=== PATIENT | female | born 1955 | race Caucasian/White ===

== ENCOUNTER → 2018-03-27 09:08 | Outpatient (CLI) | payer MEDICARE, SELFPAY ==
[2018-03-27 13:09] LABS: Abs Immature Grans 0.03 k/cumm (0.0-0.09); Absolute Basophil Count 0.12 k/cumm (0.0-0.2); Absolute Eosinophil Count 0.18 k/cumm (0.0-0.7); Absolute Monocyte Count 0.62 k/cumm (0.11-0.7); Basophils % 1.1; Eosinophils % 1.6; HCT 43.2 % (36.0-46.0); HGB 13.5 g/dL (12.0-15.5); Immature Grans % 0.3; Lymphocytes % 23.9; Mean Corp. HGB Concentration 31.3 g/dL (32.0-36.0); Mean Corpuscular Hemoglobin 28.6 pg (27.0-33.0); Mean Corpuscular Volume 91.5 fL (80-95); Mean Platelet Volume 11.1 fL (8.0-11.0); Monocytes % 5.5; Neutrophils % 67.6; Platelet Count 369 x1000/uL (130-400); RBC 4.72 m/cumm (4.00-5.20); RBC Distribution Width 14.4 % (11.7-14.6); White Blood Cell Count 11.31 k/cumm (4.4-10.8)
[2018-03-27 13:18] LABS: ALT 36 U/L (12-78); AST 26 U/L (15-37); Albumin 3.9 g/dL (3.4-5.0); Alkaline Phosphatase 139 U/L (46-116); Anion Gap 11.3 mmol/L (3-11); BUN 22 mg/dL (7-18); Bilirubin, Total 0.2 mg/dL (0.2-1.0); CO2 22.7 mmol/L (21.0-32.0); CREATININE 1.61 mg/dL (0.55-1.02); Calcium 9.2 mg/dL (8.5-10.1); Chloride 105 mmol/L (98-107); Cholesterol 268 mg/dL (50-200); Estimated GFR 32.43 (mL/min/1.73m2); Glucose 111 mg/dL (70-100); HDL Cholesterol 41 mg/dL (40-60); LDL CHOLESTEROL 154 mg/dL (<100); Potassium 4.5 mmol/L (3.5-5.1); Sodium 139 mmol/L (136-145); TSH 3.03 uIU/mL (0.358-3.74); Total Protein 8.1 g/dL (6.4-8.2); Triglyceride 370 mg/dL (30-150)
[2018-03-27 13:19] LABS: Absolute Neutrophil Count 7.65 k/cumm (1.2-6.7)
[2018-03-27 13:42] LABS: FREE T4 1.13 ng/dL (0.76-1.46)
[2018-03-29 12:22] LABS: Lamotrigine 6.8 mcg/mL (2.5 - 15.0)
[2018-04-01 11:37] LABS: Bupropion None Detected; Reporting Limit 50 ng/mL
== END ==
PROVIDERS: PCP Nurse Practitioner Family; Visit Provider Nurse Practitioner Family
DX: E03.9 Hypothyroidism, unspecified (principal); I10 Essential (primary) hypertension; F32.9 Major depressive disorder, single episode, unspecified; Z51.81 Encounter for therapeutic drug level monitoring
CPT/HCPCS: 36415; 80053; 80061; 80175; 80338; 83721; 84439; 84443; 85025

== ENCOUNTER 2018-04-12 10:53 | Outpatient (REF) | payer MEDICARE, SELFPAY ==
[2018-04-12 12:45] LABS: Microalb ug/mg Crea 9.5 ug/mg Cr
== END 2018-04-12 11:13 ==
LOC: LBN 10:53
PROVIDERS: PCP Nurse Practitioner Family; Visit Provider Nurse Practitioner Family
DX: N18.9 Chronic kidney disease, unspecified (principal)
CPT/HCPCS: 82043; 82570

== ENCOUNTER 2018-07-01 10:25 | Outpatient (REF) | payer MEDICARE, SELFPAY ==
--- NOTE | 2018-07-01 09:00 | PAPFT_PTH ---
PATIENT: Jo Ann Kessler LOC: [facility] U#:[id number] AGE/SX: 63/F ROOM: RE07/01/[address]: GREGG Cunningham : 1955 BED: DIS: 07/01/2018 SPEC #: [id number] RECD: 07/01/18 12:52 STATUS: BRYANNA RENoe #: [id number] BARBARA: 07/01/18 09:[address]: Casandra Feng DEPT: [facility] Cytology RECD BY: Jennyfer Aldrich Tissues: 1 - CX/ENDOCX FOR PAP SMEARS Procedures: PAP THIN PREP/UVM Screening HPV DNA PROBE Comments: [id number]
== END 2018-07-01 10:45 ==
LOC: LBN 10:25
PROVIDERS: PCP Nurse Practitioner Family; Visit Provider Nurse Practitioner Family
DX: Z12.4 Encounter for screening for malignant neoplasm of cervix (principal); Z11.51 Encounter for screening for human papillomavirus (HPV)
CPT/HCPCS: 88142; 87624

== ENCOUNTER 2018-07-04 02:16 | Outpatient (CLI) | payer MEDICARE, SELFPAY ==
[2018-07-04 11:49] LABS: ALT 60 U/L (12-78); AST 38 U/L (15-37); Albumin 3.9 g/dL (3.4-5.0); Alkaline Phosphatase 159 U/L (46-116); Anion Gap 10.8 mmol/L (3-11); BUN 26 mg/dL (7-18); Bilirubin, Total 0.2 mg/dL (0.2-1.0); CO2 26.2 mmol/L (21.0-32.0); CREATININE 1.44 mg/dL (0.55-1.02); Calcium 9.1 mg/dL (8.5-10.1); Chloride 104 mmol/L (98-107); Cholesterol 153 mg/dL (50-200); Estimated GFR 36.76 (mL/min/1.73m2); Glucose 118 mg/dL (70-100); HDL Cholesterol 44 mg/dL (40-60); LDL CHOLESTEROL 59 mg/dL (<100); Potassium 4.6 mmol/L (3.5-5.1); Sodium 141 mmol/L (136-145); Total Protein 7.7 g/dL (6.4-8.2); Triglyceride 273 mg/dL (30-150)
[2018-07-04 12:06] LABS: Hemoglobin A1C 6.1 % (4.5-6.2)
== END 2018-07-04 02:36 ==
PROVIDERS: PCP Nurse Practitioner Family; Visit Provider Nurse Practitioner Family
DX: E55.9 Vitamin D deficiency, unspecified (principal); E78.5 Hyperlipidemia, unspecified; R73.03 Prediabetes
CPT/HCPCS: 36415; 80053; 80061; 82306; 83721; 83036

== ENCOUNTER 2018-07-08 00:50 | Outpatient (CLI) | payer MEDICARE, SELFPAY ==
--- NOTE | 2018-07-08 09:48 | DI.MAMMO_ITS ---
SYMPTOM/DIAGNOSIS: SCREENING, Z12.31 MAMMOGRAM: Mammograms were interpreted according to the usual protocol including computer analysis with CAD system, tomosynthesis and C view imaging. Comparison with prior examinations. Breast density category B. There is scattered nodular densities within the breasts which appear stable. There is an area of architectural distortion in the upper inner quadrant of the left breast. this area should be further evaluated with spot compression views. Ultrasound should be obtained at that time. IMPRESSION: Additional views of the left breast, Category 0 breast density category B. MQSA ASSESSMENT OF FINDINGS: Incomplete: Needs additional imaging evaluation. Category 0. Patient will receive a letter notifying them of these results. BI-RADS category B. There are scattered areas of fibroglandular density.
== END 2018-07-08 01:10 ==
PROVIDERS: PCP Nurse Practitioner Family; Visit Provider Nurse Practitioner Family
DX: Z12.31 Encounter for screening mammogram for malignant neoplasm of breast (principal); R92.8 Other abnormal and inconclusive findings on diagnostic imaging of breast
CPT/HCPCS: 77063; 77067

== ENCOUNTER 2018-07-16 01:22 | Outpatient (CLI) | payer MEDICARE, SELFPAY ==
--- NOTE | 2018-07-16 10:07 | DI.COMBO_ITS ---
SYMPTOM/DIAGNOSIS: F/U MAMMO, LT ARCHITECTURAL DISTORTION LEFT BREAST ADDITIONAL VIEWS AND LEFT BREAST ULTRASOUND: Additional images are interpreted according to the usual protocol including tomosynthesis and 2D imaging. Spot compression views with tomography were performed of the upper and inner aspects of the left breast for an area of architectural distortion. This persists on the additional views with a stellate appearance. No ultrasound correlate was identified. No suspicious calcifications are seen. IMPRESSION: Category 4. Suspicious mammogram. Biopsy of a stellate area of architectural distortion in the upper inner aspect of the left breast should be considered. The findings were called to nurse Radha for Dr. Feng at [facility]. [facility] ASSESSMENT OF FINDINGS: Suspicious. Biopsy should be considered. Category 4. Patient will receive a letter notifying them of these results. BI-RADS category B. There are scattered areas of fibroglandular density.
== END 2018-07-16 01:42 ==
PROVIDERS: PCP Nurse Practitioner Family; Visit Provider Nurse Practitioner Family
DX: Z12.31 Encounter for screening mammogram for malignant neoplasm of breast (principal); R92.8 Other abnormal and inconclusive findings on diagnostic imaging of breast; N64.59 Other signs and symptoms in breast
CPT/HCPCS: 76642; 77063; 77067

== ENCOUNTER 2018-07-16 02:08 | Outpatient (CLI) | payer MEDICARE, SELFPAY ==
[2018-07-16 11:37] LABS: COMMENT (LAB VIEW ONLY) 152.33 mg/dL; Microalb ug/mg Crea 24.2 ug/mg Cr
[2018-07-16 14:15] LABS: Bilirubin Negative (Negative); Blood Negative (Negative); Clarity Clear; Glucose Negative (Negative); Ketones Negative (Negative); Leukocyte Esterase Trace (Negative); Nitrite Negative (Negative); Urobilinogen 0.2 EU/dL (Up TO 0.2); pH 5.5 (5-8)
[2018-07-16 14:27] LABS: Bacteria Moderate HPF (Negative); C & S Indicated? No/Sq. Contamination; Casts Negative LPF (Negative); Crystals Negative HPF (Negative); Epithelial Cells Moderate HPF (Negative); Mucus Moderate (Negative); Other Cells Mod Transitional (Negative); RBC Negative (0-2)
== END 2018-07-16 02:28 ==
PROVIDERS: PCP Nurse Practitioner Family; Visit Provider Nurse Practitioner Family
DX: N18.9 Chronic kidney disease, unspecified (principal)
CPT/HCPCS: 76642; 77063; 77067; 81003; 81015; 82043; 82570

== ENCOUNTER 2018-07-19 01:03 | Outpatient (CLI) | payer MEDICARE, SELFPAY ==
--- NOTE | 2018-07-19 15:15 | DI.US_ITS ---
SYMPTOM/DIAGNOSIS: CKD, N18.9 RENAL ULTRASOUND: Routine examination. The right kidney measures 10.1 cm long. The left kidney measures 9.4 cm long. No renal mass, calculus or obstruction is seen. There is symmetric blood flow to the kidneys. The pre-void urinary bladder volume was 160 cc The bladder wall appeared smooth. Both ureteral jets were visualized. No intraluminal masses present. The bladder completely emptied upon voiding. IMPRESSION: Normal renal ultrasound.
== END 2018-07-19 01:23 ==
PROVIDERS: PCP Nurse Practitioner Family; Visit Provider Nurse Practitioner Family
DX: N18.9 Chronic kidney disease, unspecified (principal)
CPT/HCPCS: 76770

== ENCOUNTER 2018-12-04 09:36 | Outpatient (CLI) | payer MEDICARE, SELFPAY ==
[2018-12-04 11:19] LABS: Abs Immature Grans 0.02 k/cumm (0.0-0.09); Absolute Basophil Count 0.17 k/cumm (0.0-0.2); Absolute Eosinophil Count 0.16 k/cumm (0.0-0.7); Absolute Lymphocyte Count 2.21 k/cumm (1.2-3.4); Absolute Monocyte Count 0.52 k/cumm (0.11-0.7); Absolute Neutrophil Count 4.95 k/cumm (1.2-6.7); Basophils % 2.1; HCT 41.9 % (36.0-46.0); HGB 13.8 g/dL (12.0-15.5); Immature Grans % 0.2; Lymphocytes % 27.5; Mean Corp. HGB Concentration 32.9 g/dL (32.0-36.0); Mean Corpuscular Hemoglobin 29.2 pg (27.0-33.0); Mean Corpuscular Volume 88.6 fL (80-95); Mean Platelet Volume 12.4 fL (8.0-11.0); Monocytes % 6.5; Neutrophils % 61.7; Platelet Count 240 x1000/uL (130-400); RBC 4.73 m/cumm (4.00-5.20); RBC Distribution Width 15.3 % (11.7-14.6); White Blood Cell Count 8.03 k/cumm (4.4-10.8)
[2018-12-04 11:32] LABS: ALT 269 U/L (12-78); AST 167 U/L (15-37); Albumin 3.7 g/dL (3.4-5.0); Alkaline Phosphatase 476 U/L (46-116); Anion Gap 12.1 mmol/L (3-11); BUN 23 mg/dL (7-18); Bilirubin, Total 1.6 mg/dL (0.2-1.0); CO2 23.9 mmol/L (21.0-32.0); CREATININE 1.35 mg/dL (0.55-1.02); Calcium 9.2 mg/dL (8.5-10.1); Chloride 103 mmol/L (98-107); Estimated GFR 39.61 (mL/min/1.73m2); Glucose 108 mg/dL (70-100); Potassium 4.2 mmol/L (3.5-5.1); Sodium 139 mmol/L (136-145); TSH 1.66 uIU/mL (0.358-3.74); Total Protein 7.8 g/dL (6.4-8.2)
[2018-12-04 11:57] LABS: Hemoglobin A1C 5.8 % (4.5-6.2)
[2018-12-05 11:16] LABS: Hepatitis A Antibody IgM Negative (NEGAT); Hepatitis B Core Antibody Negative (NEGAT); Hepatitis B surface Ag Negative (NEGAT); Hepatitis C Ab w Rflx HCV PCR Negative (NEGAT)
== END 2018-12-04 09:56 ==
PROVIDERS: PCP Nurse Practitioner Family; Visit Provider Nurse Practitioner Family
DX: R73.03 Prediabetes (principal); N39.0 Urinary tract infection, site not specified; E55.9 Vitamin D deficiency, unspecified; R53.83 Other fatigue; R94.5 Abnormal results of liver function studies
CPT/HCPCS: 36415; 80053; 82306; 86704; 86709; 86803; 87340; 83036; 84439; 84443; 85025

== ENCOUNTER 2018-12-13 02:21 | Outpatient (CLI) | payer MEDICARE, SELFPAY ==
--- NOTE | 2018-12-13 07:00 | DI.US_ITS ---
SYMPTOM/DIAGNOSIS: ELEVATED LFT'S R94.5 ABDOMINAL ULTRASOUND: 12/13 The visualized liver parenchyma is normal in appearance. The gallbladder appears essentially full of gallstones with no visible lumen. Gallbladder wall is probably thickened at about 5 mm. The common hepatic duct appears to be dilated at about 10 mm although the common bile duct is nondilated at 3 mm. Question of common hepatic duct obstruction would have to be raised. No intrahepatic ductal dilatation seen at this time. Pancreas appears intact as visualized. Kidneys are unremarkable in appearance as is the spleen. Abdominal aorta and IVC are of normal diameter as visualized. CONCLUSION: Cholelithiasis and gallbladder wall thickening, question biliary obstruction at the level of the common hepatic duct. Correlation with MRCP recommended.
[2018-12-13 09:32] LABS: ALT 228 U/L (12-78); AST 143 U/L (15-37); Albumin 3.9 g/dL (3.4-5.0); Alkaline Phosphatase 577 U/L (46-116); Anion Gap 12.1 mmol/L (3-11); BUN 18 mg/dL (7-18); CO2 24.9 mmol/L (21.0-32.0); CREATININE 1.27 mg/dL (0.55-1.02); Chloride 100 mmol/L (98-107); Glucose 101 mg/dL (70-100); Potassium 4.3 mmol/L (3.5-5.1); Sodium 137 mmol/L (136-145); Total Protein 8.1 g/dL (6.4-8.2)
[2018-12-16 11:24] LABS: Hepatitis A Antibody IgM Negative (NEGAT); Hepatitis B Core Antibody Negative (NEGAT); Hepatitis B surface Ag Negative (NEGAT); Hepatitis C Ab w Rflx HCV PCR Negative (NEGAT)
== END 2018-12-13 02:41 ==
PROVIDERS: PCP Nurse Practitioner Family; Visit Provider Nurse Practitioner Family
DX: R94.5 Abnormal results of liver function studies (principal); K80.20 Calculus of gallbladder without cholecystitis without obstruction; Z11.59 Encounter for screening for other viral diseases; Z01.84 Encounter for antibody response examination
CPT/HCPCS: 36415; 80053; 86704; 86709; 86803; 87340; 76700

== ENCOUNTER 2020-05-12 01:25 | Outpatient (CLI) | payer MEDICARE, SELFPAY ==
[2020-05-12 12:48] LABS: ALT 31 U/L (14-59); AST 26 U/L (15-37); Albumin 3.7 g/dL (3.4-5.0); Alkaline Phosphatase 135 U/L (46-116); BUN 28 mg/dL (7-18); Bilirubin, Total 0.2 mg/dL (0.2-1.0); CREATININE 1.17 mg/dL (0.55-1.02); Calcium 9.1 mg/dL (8.5-10.1); Calculated LDL 157 mg/dL (<100); Chloride 107 mmol/L (98-107); Cholesterol 259 mg/dL (<200); Estimated GFR 46.42 (mL/min/1.73m2); Glucose 102 mg/dL (74-106); HDL Cholesterol 50 mg/dL (40-60); Potassium 4.5 mmol/L (3.5-5.1); Sodium 141 mmol/L (136-145); TSH 3.99 uIU/mL (0.36-3.74); Total Protein 7.5 g/dL (6.4-8.2); Triglyceride 264 mg/dL (<150)
== END 2020-05-12 01:45 ==
PROVIDERS: PCP Nurse Practitioner Family; Visit Provider Nurse Practitioner Family
DX: E03.9 Hypothyroidism, unspecified (principal); R73.03 Prediabetes; I10 Essential (primary) hypertension
CPT/HCPCS: 36415; 80053; 80061; 83036; 84439; 84443

== ENCOUNTER 2020-12-09 08:24 | Outpatient (REF) | payer MEDICARE, SELFPAY ==
[2020-12-09 13:20] LABS: ALT 36 U/L (14-59); AST 22 U/L (15-37); Alkaline Phosphatase 113 U/L (46-116); Anion Gap 8.8 mmol/L (3-11); BUN 50 mg/dL (7-18); Bilirubin, Total 0.2 mg/dL (0.2-1.0); CO2 24.2 mmol/L (21.0-32.0); CREATININE 1.6 mg/dL (0.55-1.02); Calcium 9.3 mg/dL (8.5-10.1); Chloride 104 mmol/L (98-107); Estimated GFR 32.35 (mL/min/1.73m2); Glucose 101 mg/dL (74-106); Potassium 5.3 mmol/L (3.5-5.1); Sodium 137 mmol/L (136-145); Total Protein 7.7 g/dL (6.4-8.2)
== END 2020-12-09 08:25 | disposition home or self-care (01) ==
LOC: LBN 08:24
PROVIDERS: PCP Nurse Practitioner Family; Visit Provider Nurse Practitioner Family
DX: K42.9 Umbilical hernia without obstruction or gangrene (principal); I10 Essential (primary) hypertension
CPT/HCPCS: 80053

== ENCOUNTER 2020-12-17 03:58 | Outpatient (CLI) | payer MEDICARE, SELFPAY ==
--- NOTE | 2020-12-17 06:30 | DI.RAD_ITS ---
Exam(s) XR FOOT RT COMPLETE EXAM: XR FOOT RT COMPLETE CLINICAL HISTORY: Suspected ganglion cyst of dorsum of right foot,M67.471. TECHNIQUE: 2D digital imaging was performed. COMPARISON: No exams were available for comparison FINDINGS: BONES: No acute fracture is present. No bony destructive lesion is seen. Heel spurs are seen. There is an accessory navicular. JOINTS: No dislocation present. There are degenerative changes at the talonavicular joint and tarsal metatarsal joints. SOFT TISSUE: A marker was placed over the area of soft tissue prominence of the dorsum of the foot. There is a visible area of focal soft tissue prominence at the level of the tarsal metatarsal joints at the dorsal aspect of the foot. There is no evidence of calcification. Findings could represent a ganglion. IMPRESSION: Focal soft tissue prominence at the dorsal aspect of the foot could represent a ganglion. Heel spurs and degenerative changes are seen. DATA REPOSITORY: RADIATION DOSE DELIVERED:
--- NOTE | 2020-12-17 06:30 | DI.CT_ITS ---
Exam(s) CT ABDOMEN W EXAM: CT ABDOMEN W CLINICAL HISTORY: Suspected umbilical hernia, superior umbilical mas TECHNIQUE: Imaging Protocol: Axial computed tomography images with coronal and sagittal reformatted images were created and reviewed. Images were performed from the lung bases through the aortic bifur cation. CONTRAST MATERIAL: Intravenous: Omnipaque 350 Contrast volume:100 contrast route:IV - Oral: yes COMPARISON: US US ABDOMEN from 12/13/2018 US US ABDOMEN from 12/13/2018 FINDINGS: ABDOMEN: Lung Bases: Normal where visualized. Liver: Mgpr-ed-bcyyioyk hepatic steatosis. Mild liver enlargement.. No measurable mass. Gallbladder and biliary tract: Extremely contracted versus surgically absent. No radiodense calculus or dilation. Pancreas: Normal density, no abnormal calcifications or inflammatory process. No ductal dilatation. Spleen: Normal. Kidneys: Normal size, contour and axis. No radiodense stones or obstructive uropathy. No masses seen. Adrenal glands: No masses seen. Abdominal Aorta: Abdominal portion non-dilated. Lymph nodes: Within normal limits. Bowel: Visualized bowel shows no evidence of wall thickening or abnormal dilatation. There is a ques tion of a tiny hiatal hernia. Soft tissues: Due to the patient's body habitus, the umbilicus is not included in the field of view. No hernias are identified in the anterior abdominal wall in the field of view visualized.. Bones: Degenerative disc changes and facet degenerative changes. IMPRESSION: Region of the umbilicus is not included in the field of view. Pelvic CT is recommended to include th is region. RADIATION DOSE DELIVERED: 455.22mGy.cm Total DLP DATA REPOSITORY: All CT scans at this facility are submitted to the National Radiology Data Registry (NRDR) Dose Index Registry (DIR) with the [employer] (ACR). RADIATION OPTIMIZATION: All CT scans at this facility use at least one of these dose optimization te chniques: automated exposure control; mA and/or kV adjustment per patient size (includes targeted exa ms where dose is matched to clinical indication); or iterative reconstruction.
[2020-12-17] MEDS: Omnipaque 350 MG/ML 50 ML BTL PO (08:35)
[2020-12-17] MEDS: Breeza Beverage 473 ML BTL PO (08:36)
[2020-12-17 08:42] LABS: BUN 39 mg/dL (7-18); CREATININE 1.4 mg/dL (0.55-1.02); Chloride 104 mmol/L (98-107); Estimated GFR 37.74 (mL/min/1.73m2); Glucose 118 mg/dL (74-106); Potassium 4.4 mmol/L (3.5-5.1); Sodium 139 mmol/L (136-145)
[2020-12-17] MEDS: Omnipaque 350 MG/ML 100 ML BTL IV (09:43)
[2020-12-17] MEDS: Normal Saline - Diluent 50 ML VIAL IV (09:44)
[2020-12-17] MEDS: Normal Saline Flush 10 ML SYR IVP (09:46)
== END 2020-12-17 04:18 ==
PROVIDERS: PCP Nurse Practitioner Family; Visit Provider Nurse Practitioner Family
DX: M67.471 Ganglion, right ankle and foot (principal); M77.31 Calcaneal spur, right foot; M19.071 Primary osteoarthritis, right ankle and foot; R19.05 Periumbilic swelling, mass or lump; R16.0 Hepatomegaly, not elsewhere classified; K76.0 Fatty (change of) liver, not elsewhere classified; I10 Essential (primary) hypertension
CPT/HCPCS: 80048; 73630; 74160; J3490; Q9967

== ENCOUNTER 2020-12-24 04:15 | Outpatient (CLI) | payer MEDICARE, SELFPAY ==
--- NOTE | 2020-12-24 07:04 | DI.CT_ITS ---
Exam(s) CT PELVIC WO EXAM: CT PELVIC WO CLINICAL HISTORY: Incomplete abd ct, needs pelvic,UMBILICAL HERNIA,K42.9 TECHNIQUE: COMPARISON: CT CT ABDOMEN W from 12/17/2020 FINDINGS: CT examination of the pelvis was performed to complete evaluation of suspected umbilical hernia. Visualized aorta is of normal diameter. Kidneys appear normal bilaterally. No focal bowel abnormali ty. Normal appendix. No evidence of diverticulitis or bowel obstruction. No lower abdominal or pelvic adenopathy. No inguinal adenopathy. Retort Forker structures appear intact by CT criteria. No significant bony abnormality seen. There is a fat containing umbilical hernia with an orifice measuring about 3.8 cm in diameter on carranza saxial imaging. No bowel involvement. No additional hernia seen. No fat edema is through suggest s trangulation. IMPRESSION: Uncomplicated 4 cm in diameter fat containing umbilical hernia. No other significant findings. RADIATION DOSE DELIVERED: 656.41mGy.cm Total DLP RADIATION OPTIMIZATION: All CT scans at this facility use at least one of these dose optimization te chniques: automated exposure control; mA and/or kV adjustment per patient size (includes targeted exa ms where dose is matched to clinical indication); or iterative reconstruction.
[2020-12-24] MEDS: Breeza Beverage 473 ML BTL PO ×2 (12:35→12:37)
[2020-12-24] MEDS: Omnipaque 350 MG/ML 50 ML BTL IJ (12:37)
[2020-12-24] MEDS: Omnipaque 350 MG/ML 100 ML BTL IJ (13:04)
[2020-12-24 13:05] LABS: CREATININE 2.1 mg/dL (0.55-1.02); Estimated GFR 23.64 (mL/min/1.73m2)
[2020-12-24] MEDS: Normal Saline - Diluent 50 ML VIAL IV (13:05)
== END 2020-12-24 04:35 ==
PROVIDERS: PCP Nurse Practitioner Family; Visit Provider Nurse Practitioner Family
DX: K42.9 Umbilical hernia without obstruction or gangrene (principal)
CPT/HCPCS: 72192; 82565; J3490; Q9967

== ENCOUNTER 2021-01-05 03:12 | Outpatient (CLI) | payer MEDICARE, SELFPAY ==
[2021-01-05 12:35] LABS: Anion Gap 10.2 mmol/L (3-11); BUN 44 mg/dL (7-18); CO2 25.8 mmol/L (21.0-32.0); CREATININE 1.8 mg/dL (0.55-1.02); Calcium 9.2 mg/dL (8.5-10.1); Chloride 105 mmol/L (98-107); Estimated GFR 28.24 (mL/min/1.73m2); Glucose 108 mg/dL (74-106); Potassium 4.7 mmol/L (3.5-5.1); Sodium 141 mmol/L (136-145)
== END 2021-01-05 03:13 | disposition home or self-care (01) ==
LOC: LOS 03:13
PROVIDERS: PCP Nurse Practitioner Family; Visit Provider Nurse Practitioner Family
DX: N18.9 Chronic kidney disease, unspecified (principal)
CPT/HCPCS: 36415; 80048

== ENCOUNTER 2021-05-30 00:33 | Outpatient (CLI) | payer MEDICARE, SELFPAY ==
--- NOTE | 2021-05-30 07:36 | DI.MAMMO_ITS ---
Exam(s) MAMMO SCREENING EXAM: MAMMO SCREENING CLINICAL HISTORY: screening,z12.39. TECHNIQUE: Bilateral full field digital CC and MLO mammographic images were obtained with 3D tomosyn thesis and utilizing computer aided detection (CAD). COMPARISON: Prior mammograms dating back to 2012, the most recent being July 2018. Patient underwent left breast biopsy 2019. Strong family history. Both her mother and sister were diagnosed with breast cancer. FINDINGS: There are no new significant radiograph findings in the vicinity of the biopsy marker in the left escobar ast. There are nodular densities bilaterally which remain unchanged. However, towards the medial aspect of the right breast there is a nodule which has increased in size, presently measuring 7 by 5 millimeters, this located 5 cm in from the nipple, medially. Ultrasound r ecommended. In the opposite-left breast there is a nodule located anteriorly, approximately 3 cm in from the nipp le measuring 6 by 4 millimeters, more evident than on prior studies. Ultrasound recommended. There ar e no malignant-appearing microcalcification groups in either breast. There is no significant architectural distortion nor skin thickening-retraction. IMPRESSION: In addition to stable nodules in both breasts there is also single nodular density in each breast as described above which require spot compression and ultrasound. BI-RADS Category 0 - Assessment Incomplete: Need additional imaging evaluation Breast Density - Category B - Scattered areas of fibroglandular density Breast density Category C or D implies that the patient has dense breast tissue. Dense breast tissue can make it harder to find cancer on a mammogram. Dense breast tissue is also associated with an incr eased risk of breast cancer. This information about the result of the mammogram report was provided to the patient to raise their awareness. Use this report when you speak with the patient about their risks for breast cancer, which includes their family history. At that time, you may recommend additional screening tests (Ultrasoun d or MRI) as these tests may add significant information. A negative radiographic report should not delay biopsy if a dominant or clinically suspicious mass is present. Up to ten percent of cancers are not identified on mammography. A negative report may reinforce clinical impression. Adenosis and dense breasts may obscure an underlying neoplasm. False positive reports average 6 to 10%. Patient will receive a letter notifying them of these results.
== END 2021-05-30 00:53 ==
PROVIDERS: PCP Nurse Practitioner Family; Visit Provider Nurse Practitioner Family
DX: Z12.31 Encounter for screening mammogram for malignant neoplasm of breast (principal); R92.8 Other abnormal and inconclusive findings on diagnostic imaging of breast; Z80.3 Family history of malignant neoplasm of breast
CPT/HCPCS: 77063; 77067

== ENCOUNTER → 2021-06-29 01:34 | Outpatient (CLI) | payer MEDICARE, SELFPAY ==
--- NOTE | 2021-06-29 10:00 | DI.MAMMO_ITS ---
Exam(s) US BREAST LT COMPLETE US BREAST RT COMPLETE MG MAMMO SCREEN CALL BACK BI EXAM: US BREAST RT COMPLETE CLINICAL HISTORY: BILAT NODULES TECHNIQUE: Ultrasound performed using standard protocol. COMPARISON: US US ABDOMEN from 12/13/2018 US US BREAST LT COMPLETE from 06/29/2021 FINDINGS: Additional mammographic views of both breasts and bilateral breast ultrasound are interpreted in conj unction. In the left breast, recent mammogram showed questionable area of nodularity in the retroareolar porti on of the breast. Additional mammographic views show no evidence a mass. Breast ultrasound shows so me moderately dilated intramammary ducts in the retroareolar portion of the breast and also show 6 mi llimeter in diameter intramammary lymph node in the 12 o'clock position in the breast. No suspicious findings in the left breast. In the right breast, additional mammographic views were obtained to evaluate medially located superfi cial nodule and this is confirmed on additional mammographic views to be a well-circumscribed nodule. This appears to correspond with an approximately 7 millimeter greatest diameter cyst in the 7 o'krystal ck position in the breast about 5 cm from the nipple. An additional septated cyst is noted measuring 7 millimeters in diameter in 3 o'clock position 3 cm from the nipple. Additionally, there is a 4 mi llimeter in diameter mildly hypoechoic nodule which is well-circumscribed located in the 12 o'clock p osition about 2 cm from the nipple. This is indeterminate, follow-up breast ultrasound recommended i n 6 months to re-evaluate this finding. This may represent a small group of microcysts cysts or an i ntramammary lymph node, however malignancy is not entirely excluded. IMPRESSION: No specific evidence of malignancy at this time. Follow-up bilateral mammogram is requested in 6 mon ths. Additionally, a six-month follow-up right breast ultrasound is requested to reassess an indeterminate 3 millimeter in diameter hypoechoic or micro cyst nodule located in the 12 o'clock position 2 cm fro m the nipple. BI-RADS Cat 3 - 6 month - Probably Benign Finding: Recommend follow-up imaging in 6 months Breast Density - Category B - Scattered areas of fibroglandular density DATA REPOSITORY:
== END ==
PROVIDERS: PCP Nurse Practitioner Family; Visit Provider Nurse Practitioner Family
DX: R92.8 Other abnormal and inconclusive findings on diagnostic imaging of breast (principal)
CPT/HCPCS: 76642; 77063; 77067

== ENCOUNTER 2021-07-28 10:48 | Outpatient (REF) | payer MEDICARE, SELFPAY ==
[2021-07-28 13:00] LABS: Anion Gap 6.5 mmol/L (3-11); BUN 36 mg/dL (7-18); CO2 29.5 mmol/L (21.0-32.0); CREATININE 1.5 mg/dL (0.55-1.02); Calcium 9.4 mg/dL (8.5-10.1); Calculated LDL 158 mg/dL (<100); Chloride 105 mmol/L (98-107); Cholesterol 260 mg/dL (<200); Estimated GFR 34.74 (mL/min/1.73m2); Glucose 112 mg/dL (74-106); HDL Cholesterol 45 mg/dL (40-60); Potassium 5.2 mmol/L (3.5-5.1); Sodium 141 mmol/L (136-145); TSH 1.37 uIU/mL (0.36-3.74); Triglyceride 289 mg/dL (<150)
[2021-07-28 13:16] LABS: FREE T4 0.93 ng/dL (0.76-1.46)
== END 2021-07-28 10:49 | disposition home or self-care (01) ==
LOC: LBN 10:48
PROVIDERS: PCP Nurse Practitioner Family; Visit Provider Nurse Practitioner Family
DX: E03.9 Hypothyroidism, unspecified (principal); E78.5 Hyperlipidemia, unspecified; R73.03 Prediabetes; N17.9 Acute kidney failure, unspecified
CPT/HCPCS: 80048; 80061; 83036; 84439; 84443

== ENCOUNTER 2021-12-28 03:25 | Outpatient (CLI) | payer MEDICARE, SELFPAY ==
--- NOTE | 2021-12-28 | DI.US_ITS ---
Exam(s) US BREAST RT LIMITED MG MAMMO DIAGNOSTIC BI EXAM: MG MAMMO DIAGNOSTIC BI and U/S breast RT limited CLINICAL HISTORY: 6 MO F/U, F/U ABNL MAMMO, R92.8. TECHNIQUE: Craniocaudal and mediolateral oblique Full Field Digital Mammography views of the bilater al breast with Computer Aided Diagnosis followed by Tomosynthesis. COMPARISON: Comparison is made with prior examinations. FINDINGS: Mammography/Tomosynthesis: Masses/Architectural Distortion: There are stable bilateral parenchymal nodules. No new nodules or a reas of architectural distortion are present. Microcalcifictions: No suspicious pleomorphic-type are seen. Skin Thickening/Nipple Retraction: None. Limited right breast US: Echotexture: Normal appearance of the glandular tissue. Shadowing: No suspicious foci. Cyst: There has been no change in the previously noted right breast cysts. Solid lesions: There has been no change in appearance of the nodule in the right breast. Ductal dilation: None. IMPRESSION: 1. No evidence of malignancy is noted. 2. A six-month follow-up right mammogram and right breast ultrasound are recommended for re-evaluatio n. 3. The findings were discussed with the patient on the date of the examination. BI-RADS Category 3 - 6 month - Probably Benign Finding: Recommend follow-up imaging in 6 months Breast Density - Category B - Scattered areas of fibroglandular density Breast density Category C or D implies that the patient has dense breast tissue. Dense breast tissue can make it harder to find cancer on a mammogram. Dense breast tissue is also associated with an incr eased risk of breast cancer. This information about the result of the mammogram report was provided to the patient to raise their awareness. Use this report when you speak with the patient about their risks for breast cancer, which includes their family history. At that time, you may recommend additional screening tests (Ultrasoun d or MRI) as these tests may add significant information. A negative radiographic report should not delay biopsy if a dominant or clinically suspicious mass is present. Up to ten percent of cancers are not identified on mammography. A negative report may reinforce clinical impression. Adenosis and dense breasts may obscure an underlying neoplasm. False positive reports average 6 to 10%. Patient will receive a letter notifying them of these results.
--- NOTE | 2021-12-28 10:30 | DI.DEXA_ITS ---
Exam(s) XR DEXA BONE DENSITY W/WO ARETHA EXAM: XR DEXA BONE DENSITY W/WO ARETHA CLINICAL HISTORY: osteoporosis screening, POSTMENOPAUSAL STATUS, Z78.0 TECHNIQUE: COMPARISON: No exams were available for comparison FINDINGS: Lateral Spine Image: Unremarkable. No compression deformities identified. Left hip: Total T-Score: -0.8. This compares to 0.5 on the prior examination. This is a decrease of 16 percent in the bone mineral density. Total Z-Score: 0.5 T- and Z-scores: Within normal limits. Lumbar Spine: Total T-Score: 0.1. This compares to -0.2 on the prior examination for an increase of 3.3 percent in the bone mineral density. Total Z-Score: 2.0 T- and Z-scores: Within normal limits. IMPRESSION: No evidence of osteoporosis.
== END 2021-12-28 03:45 ==
PROVIDERS: PCP Nurse Practitioner Family; Visit Provider Nurse Practitioner Family
DX: R92.8 Other abnormal and inconclusive findings on diagnostic imaging of breast (principal); Z12.39 Encounter for other screening for malignant neoplasm of breast; Z78.0 Asymptomatic menopausal state; Z13.820 Encounter for screening for osteoporosis
CPT/HCPCS: 76642; 77062; 77066; 77080; G0279

== ENCOUNTER 2022-03-08 22:06 | Outpatient (REF) | payer MEDICARE, SELFPAY | END 2022-03-08 22:07 | disposition home or self-care (01) | LOC: LBN 22:06 | PROVIDERS: PCP Nurse Practitioner Family; Visit Provider Family Medicine | DX: N30.01 Acute cystitis with hematuria (principal) | CPT/HCPCS: 87077; 87086; 87186 ==

== ENCOUNTER 2022-07-22 13:30 | Emergency (ER) | payer MEDICARE, SELFPAY ==
[2022-07-22 13:31] VITALS: BP 100/58; PULSE 107; RESP 18; TEMP 36.8; O2SAT 95
--- NOTE | 2022-07-22 13:44 | ED.GENADUL_ITS ---
Discharge Plan Disposition Patient Disposition: Home Condition: Improving Discharge Details Chief Complaint: Allergic Clinical Impression: Angio-edema Primary Care Provider: Casandra Feng ED Provider: Michael Negron Home Meds and New Rx's Prescriptions: No Action cholecalciferol (vitamin D3) 2,000 unit tablet 2,000 unit PO DAILY Qty: 90 4RF brimonidine-timolol 0.2-0.5 % drops 1 drp OP DAILY lorazepam 1 mg tablet 1 mg PO DAILY PRN venlafaxine 150 mg tablet extended release 24hr 150 mg PO DAILY nitrofurantoin monohyd/m-cryst 100 mg capsule 100 mg PO Q12H 7 Days Qty: 14 0RF Rx Instructions: must administer with a meal/food chlorthalidone 25 mg tablet 25 mg PO DAILY Qty: 90 4RF Rx Instructions: Take 1 tablet daily atorvastatin 10 mg tablet 10 mg PO DAILY Qty: 90 4RF lisinopril 20 mg tablet 20 mg PO DAILY Qty: 90 4RF levothyroxine 75 mcg capsule 75 mcg PO DAILY Qty: 90 4RF Discharge Instructions Instructions: Angioedema (ED) Additional Instructions: Please follow-up with your primary care physician. Please return to the emergency department for any worsening symptoms. Medical Decision Making 67-year-old female history of hypertension hyperlipidemia on lisinopril, presents with resolving tongue swelling that she noted this morning when waking up, took Benadryl at home was given IM epinephrine at [facility]. Improving symptomatology. Tolerating secretions however does have moderate anterior tongue swelling and slight voice change, no stridor. Normoxic lungs clear bilaterally. Likely angioedema related to lisinopril versus hereditary angioedema versus less likely allergic reaction or anaphylaxis despite improvement after medications. Will add dexamethasone famotidine, fluids, close reassessment, if continued improvement patient be discharged home otherwise to be admitted for observation. 16: 58 patient resting comfortably swelling greatly reduced. Voice normalizing. Tolerating secretions. HPI General Date/Time Provider Initiated Documentation: 07/22/22 13:37 . HPI Narrative: 67-year-old female hypertension, hyperlipidemia presents with resolving tongue swelling, woke this morning with her tongue swollen felt a going towards the back of her throat, had some difficulty swallowing, administer Benadryl at home before going to urgent care where she was given epinephrine IM; in route patient endorses that her symptoms have been improving; still has slight swelling of the tongue. Patient does take lisinopril Related Data Home Medications Medication Instructions Recorded Confirmed brimonidine 0.2 %-timolol 0.5 % 1 drp ophthalmic (eye) DAILY 04/11/18 07/22/22 eye drops cholecalciferol (vitamin D3) 50 2,000 unit PO DAILY #90 tabs 07/01/18 07/22/22 mcg (2,000 unit) tablet atorvastatin 10 mg tablet 10 mg PO DAILY #90 tabs 07/28/21 07/22/22 chlorthalidone 25 mg tablet 25 mg PO DAILY #90 tabs 07/28/21 07/22/22 levothyroxine 75 mcg capsule 75 mcg PO DAILY #90 tab-caps 07/28/21 07/22/22 lisinopril 20 mg tablet 20 mg PO DAILY #90 tabs 07/28/21 07/22/22 lorazepam 1 mg tablet 1 mg PO DAILY PRN 07/28/21 07/22/22 venlafaxine 150 mg tablet,extended 150 mg PO DAILY 07/28/21 07/22/22 release 24 hr nitrofurantoin 100 mg PO Q12H 7 days #14 caps 03/08/22 07/22/22 monohydrate/macrocrystals 100 mg capsule Previous Rx's Medication Instructions Recorded cholecalciferol (vitamin D3) 50 2,000 unit PO DAILY #90 tabs 07/01/18 mcg (2,000 unit) tablet atorvastatin 10 mg tablet 10 mg PO DAILY #90 tabs 07/28/21 chlorthalidone 25 mg tablet 25 mg PO DAILY #90 tabs 07/28/21 levothyroxine 75 mcg capsule 75 mcg PO DAILY #90 tab-caps 07/28/21 lisinopril 20 mg tablet 20 mg PO DAILY #90 tabs 07/28/21 nitrofurantoin 100 mg PO Q12H 7 days #14 caps 03/08/22 monohydrate/macrocrystals 100 mg capsule Allergies Allergy/AdvReac Type Severity Reaction Status Date / Time bupropion AdvReac Intermediate INTOLERANCE Unverified 03/08/22 16:12 aripiprazole [From Abilify] AdvReac Mild FEELS Unverified 03/08/22 16:12 LIKE SEIZURE General Stated Complaint: Allergic PINKY: 3 Review of Systems Narrative: Review of Systems Constitutional: negative Eyes: negative ENT: Tongue swelling Cardiovascular: negative Respiratory: negative Gastrointestinal: negative : negative Musculoskeletal: negative Skin: negative Neurologic: negative Psych: negative PFSH All Active Problems (Updated 07/22/22 @ 17:00 by Michael Negron MD) Angio-edema (Acute) Abnormal mammogram (Acute) 12/2021- repeat in 6 months Hypothyroidism (Chronic) Chronic kidney disease (Chronic) Essential hypertension (Chronic) Hyperlipidemia (Chronic) Prediabetes (Chronic) Umbilical hernia (Chronic) Manic depressive disorder (Chronic) Generalized anxiety disorder (Chronic) Posttraumatic stress disorder (Chronic) Osteoarthritis (Chronic) Glaucoma (Chronic) Obesity (Chronic) Medical History Choledocholithiasis Hx of suicide attempt Post-menopausal bleeding Surgical History History of bilateral tubal ligation Hx of section x 3 S/P ERCP 01/01/19 and 01/30/19 S/P laparoscopic cholecystectomy (03/06/19) Family History Mother Breast cancer in her late 50s Father , at 79 of CHF Essential hypertension Heart disease Sister Essential hypertension Breast cancer in her 30s Sister Depression Son No problems noted. Daughter No problems noted. Daughter No problems noted. Maternal Grandfather , at 56 of [place] Heart disease Myocardial infarction Maternal Grandmother , at 62 Bone cancer Paternal Grandfather No problems noted. Paternal Grandmother No problems noted. Social History Smoking/Tobacco Use Status: Never Second Hand Exposure: Yes Smoking risk assessment performed?: Yes Alcohol Intake: never Drug use: Never Substance use type: does not use Caregiver/Support person: No Household members: spouse Communication Needs: None Pets and animals: Yes Pets and animals: cat(s) and dog(s) Do you think of yourself as: straight/heterosexual Current gender identity: female What is your relationship status?: How often do you talk on the phone with friends or family?: once per week Do you belong to any clubs or organized social groups?: no Panel score (0-1 are the most socially isolated patients): 1 What type of physical activity do you participate in: none Jennyfer/Yazdanism: No preference Special jennyfer needs: No Seatbelt use: always Drive intox or ride w/intox party bus driver: No Do you feel safe at home: Yes Do you feel safe in your relationship?: Yes Exam Narrative Exam Narrative: Physical Examination General: alert, awake, cooperative, resting comfortably, no acute distress HEENT: normocephalic, atraumatic; PERRL, EOM intact, conjunctiva normal; no nasal discharge; moderate swelling of tongue anteriorly, normal-appearing lips, tolerating secretions, slight voice change, no stridor Neck: supple, trachea midline; full ROM Chest: normal to inspection Respiratory: normal respiratory effort, speaking in full sentences, clear to auscultation, no wheezing, rales or rhonchi Cardiac: regular rate, regular rhythm, S1S2 intact, no murmurs rubs or gallops GI: abdomen soft, non-tender, non-distended; no palpable mass or hepatosplenomegaly Skin: no lesions, rashes or trauma appreciated Neuro: AAOx3, normal speech, moving all extremities Psych: Appropriate mood and affect Course Vital Signs Vital signs: Vital Signs Temperature 36.8 C 07/22/22 13:31 Pulse 107 H 07/22/22 13:31 Respiratory Rate 18 07/22/22 13:31 Blood Pressure 100/58 L 07/22/22 13:31 Pulse Oximetry 95 07/22/22 13:31 Temperature 36.8 C 07/22/22 13:31 Temperature Source Tympanic 07/22/22 13:31 Pulse 107 H 07/22/22 13:31 Respiratory Rate 18 07/22/22 13:31 Respiratory Effort 07/22/22 13:35 Respiratory Pattern Normal 07/22/22 13:35 Blood Pressure 100/58 L 07/22/22 13:31 Blood Pressure Position Supine 07/22/22 13:31 Pulse Oximetry 95 07/22/22 13:31 Oxygen Delivery Method Room Air 07/22/22 13:31 Oxygen Flow Rate 0 07/22/22 13:31 Pain Level 0 07/22/22 13:31
[2022-07-22 14:10] LABS: Abs Immature Grans 0.03 10^3/uL (0.0-0.06); Absolute Basophil Count 0.12 10^3/uL (0.0-0.2); Absolute Eosinophil Count 0.13 10^3/uL (0.0-0.7); Absolute Lymphocyte Count 2.58 10^3/uL (1.2-3.4); Absolute Neutrophil Count 6.83 10^3/uL (1.2-6.7); Basophils % 1.2; Eosinophils % 1.3; HCT 37.6 % (36.0-46.0); HGB 12.2 g/dL (11.2-15.7); Immature Grans % 0.3; Lymphocytes % 25.3; MCH 29.3 pg (27.0-33.0); MCHC 32.4 % (32.0-36.0); MCV 90 fL (80-95); MPV 10.2 fL (8.0-11.0); Monocytes % 4.9; Platelet Count 266 10^3/uL (130-400); RBC 4.17 10^6/uL (3.93-5.22); RDW 12.6 % (11.7-14.6); RDW-SD 41.9 fL; WBC 10.19 10^3/uL (4.4-10.8)
[2022-07-22] MEDS: Famotidine 20 MG/2 ML VIAL IVP (14:14)
[2022-07-22] MEDS: Dexamethasone 10 MG/ML VIAL IVP (14:14)
[2022-07-22] MEDS: Normal Saline 1,000 ML 1000 ML IV (14:14)
[2022-07-22 14:35] LABS: ALT 21 U/L (14-59); AST 20 U/L (15-37); Albumin 3.8 g/dL (3.4-5.0); Alkaline Phosphatase 115 U/L (46-116); Anion Gap 10.8 mmol/L (3-11); BUN 41 mg/dL (7-18); Bilirubin, Total 0.3 mg/dL (0.2-1.0); CO2 24.2 mmol/L (21.0-32.0); CREATININE 2.1 mg/dL (0.55-1.02); Calcium 9.1 mg/dL (8.5-10.1); Chloride 100 mmol/L (98-107); Estimated GFR 25.35 (mL/min/1.73m2); Glucose 131 mg/dL (74-106); Potassium 4.5 mmol/L (3.5-5.1); Sodium 135 mmol/L (136-145)
== END 2022-07-22 17:08 | disposition home or self-care (01) ==
PROVIDERS: Emergency Provider Emergency Medicine; PCP Nurse Practitioner Family
DX: T78.3XXA Angioneurotic edema, initial encounter (principal)
CPT/HCPCS: 80053; 96361; 96374; 96375; 99284; 85025; 99283; J1100

== ENCOUNTER 2022-09-29 02:30 | Outpatient (CLI) | payer MEDICARE, SELFPAY ==
[2022-09-29 13:54] LABS: Hemoglobin A1C 5.8 % (<5.7)
[2022-09-29 14:10] LABS: ALT 31 U/L (14-59); AST 25 U/L (15-37); Albumin 4.1 g/dL (3.4-5.0); Alkaline Phosphatase 107 U/L (46-116); Anion Gap 10.2 mmol/L (3-11); BUN 37 mg/dL (7-18); Bilirubin, Total 0.4 mg/dL (0.2-1.0); CO2 26.8 mmol/L (21.0-32.0); CREATININE 1.9 mg/dL (0.55-1.02); Calcium 10.2 mg/dL (8.5-10.1); Calculated LDL 138 mg/dL (<100); Chloride 104 mmol/L (98-107); Cholesterol 230 mg/dL (<200); Estimated GFR 28.58 (mL/min/1.73m2); Glucose 91 mg/dL (74-106); HDL Cholesterol 63 mg/dL (40-60); Potassium 3.9 mmol/L (3.5-5.1); Sodium 141 mmol/L (136-145); TSH (W/Ref FT4) 2.72 uIU/mL (0.36-3.74); Total Protein 8.3 g/dL (6.4-8.2); Triglyceride 146 mg/dL (<150)
== END 2022-09-29 02:31 | disposition home or self-care (01) ==
PROVIDERS: PCP Nurse Practitioner Family; Visit Provider Nurse Practitioner Family
DX: E03.9 Hypothyroidism, unspecified (principal); N18.9 Chronic kidney disease, unspecified; R73.03 Prediabetes
CPT/HCPCS: 36415; 80053; 80061; 83036; 84443

== ENCOUNTER 2023-11-15 12:14 | Outpatient (CLI) | payer MEDICARE, SELFPAY ==
[2023-11-15 13:29] LABS: Anion Gap 7.6 mmol/L (3-11); BUN 30 mg/dL (7-18); CO2 30.4 mmol/L (21.0-32.0); CREATININE 1.7 mg/dL (0.55-1.02); Calcium 9.9 mg/dL (8.5-10.1); Calculated LDL 81 mg/dL (<100); Chloride 102 mmol/L (98-107); Cholesterol 180 mg/dL (<200); Estimated GFR 32.46 (mL/min/1.73m2); Glucose 105 mg/dL (74-106); HDL Cholesterol 74 mg/dL (40-60); Potassium 3.9 mmol/L (3.5-5.1); Sodium 140 mmol/L (136-145); TSH (W/Ref FT4) 2.56 uIU/mL (0.36-3.74); Triglyceride 129 mg/dL (<150)
[2023-11-15 13:42] LABS: Vitamin D 25 Total 20.9 ng/mL (30-100)
== END 2023-11-15 12:15 | disposition home or self-care (01) ==
PROVIDERS: PCP Nurse Practitioner Family; Visit Provider Nurse Practitioner Family
DX: I10 Essential (primary) hypertension (principal); E78.5 Hyperlipidemia, unspecified; R73.03 Prediabetes; E55.9 Vitamin D deficiency, unspecified; E03.9 Hypothyroidism, unspecified
CPT/HCPCS: 36415; 80048; 80061; 82306; 83036; 84443

== ENCOUNTER 2024-10-15 08:09 | Outpatient (REF) | payer MEDICARE, SELFPAY ==
[2024-10-15 14:43] LABS: Bilirubin Negative (Negative); Blood Negative (Negative); Clarity Sl Cloudy (Clear); Glucose Negative (Negative); Ketones Negative (Negative); Leukocyte Esterase Small (Negative); Nitrite Positive (Negative); Urobilinogen 0.2 mg/dL (Up to 0.2)
[2024-10-15 14:50] LABS: Bacteria Moderate HPF (Negative); C & S Indicated? Yes; Casts 0-2 Hyaline LPF (Negative); Crystals Negative HPF (Negative); Epithelial Cells Few HPF (Negative); Mucus Negative (Negative); RBC 0-2 HPF (0-2); WBC 20-50 HPF (0-5)
[2024-10-15 15:03] LABS: COMMENT (LAB VIEW ONLY) 126.24 mg/dL; PROTEIN 18.4 mg/dL; Prot/Crea Ur Ratio 0.14
[2024-10-15 15:06] LABS: COMMENT (LAB VIEW ONLY) 126.51 mg/dL; Microalb ug/mg Crea 12.3 ug/mg Cr
== END 2024-10-15 08:10 | disposition home or self-care (01) ==
LOC: LBN 08:09
PROVIDERS: PCP Nurse Practitioner Family; Visit Provider Nurse Practitioner Family
DX: N18.4 Chronic kidney disease, stage 4 (severe) (principal); E03.9 Hypothyroidism, unspecified; R73.03 Prediabetes; F31.9 Bipolar disorder, unspecified; Z71.89 Other specified counseling
CPT/HCPCS: 87077; 81003; 81015; 82043; 82565; 82570; 84156; 87086; 87186

== ENCOUNTER 2024-10-22 03:42 | Outpatient (CLI) | payer MEDICARE, SELFPAY ==
[2024-10-22 12:17] LABS: Abs Immature Grans 0.02 10^3/uL (0.0-0.06); Absolute Basophil Count 0.16 10^3/uL (0.0-0.2); Absolute Eosinophil Count 0.18 10^3/uL (0.0-0.7); Absolute Lymphocyte Count 2.34 10^3/uL (1.2-3.4); Absolute Monocyte Count 0.58 10^3/uL (0.1-0.8); Absolute Neutrophil Count 5.11 10^3/uL (1.2-6.7); Basophils % 1.9 %; Eosinophils % 2.1 %; HCT 39.5 % (36.0-46.0); HGB 12.7 g/dL (11.2-15.7); Immature Grans % 0.2 %; Lymphocytes % 27.9 %; MCH 28.5 pg (27.0-33.0); MCHC 32.2 % (32.0-36.0); MCV 89 fL (80-95); MPV 10.3 fL (8.0-11.0); Monocytes % 6.9 %; Platelet Count 284 10^3/uL (130-400); RBC 4.46 10^6/uL (3.93-5.22); RDW 13.4 % (11.7-14.6); RDW-SD 43.7 fL; WBC 8.39 10^3/uL (4.4-10.8)
[2024-10-22 12:37] LABS: ALT 30 U/L (14-59); AST 22 U/L (15-37); Albumin 3.8 g/dL (3.4-5.0); Alkaline Phosphatase 155 U/L (46-116); Anion Gap 8.7 mmol/L (3-11); BUN 32 mg/dL (7-18); Bilirubin, Total 0.2 mg/dL (0.2-1.0); CO2 28.3 mmol/L (21.0-32.0); CREATININE 1.9 mg/dL (0.55-1.02); Calcium 9.5 mg/dL (8.5-10.1); Chloride 106 mmol/L (98-107); Estimated GFR 28.23 (mL/min/1.73m2); Glucose 96 mg/dL (74-106); Potassium 4.3 mmol/L (3.5-5.1); Sodium 143 mmol/L (136-145); Total Protein 7.3 g/dL (6.4-8.2); Uric Acid 5.8 mg/dL (2.6-6.0)
[2024-10-22 12:39] LABS: Hemoglobin A1C 6.1 % (<5.7)
[2024-10-22 13:14] LABS: Vitamin D 25 Total 21 ng/mL (30-100)
[2024-10-22 17:49] LABS: Parathyroid Hormone,Intact 101.8 pg/mL (19.0-88.0)
[2024-10-24 17:38] LABS: Cystatin C, S 1.82 mg/L; eGFR by Cystatin C 32 mL/min/BSA (>60)
== END 2024-10-22 03:43 | disposition home or self-care (01) ==
LOC: LOS 03:42
PROVIDERS: PCP Nurse Practitioner Family; Visit Provider Nurse Practitioner Family
DX: N18.4 Chronic kidney disease, stage 4 (severe) (principal); E03.9 Hypothyroidism, unspecified; R73.03 Prediabetes
CPT/HCPCS: 36415; 80053; 82306; 82610; 83036; 83970; 84100; 84443; 84550; 85025